=== PATIENT | female | born 1990 | race Caucasian/White ===

== ENCOUNTER 2018-12-18 05:48 | Emergency (ER) | payer MEDICAID ==
[2018-12-18 05:54] VITALS: O2SAT 100
[2018-12-18] MEDS ORDERED: Sodium Chloride 0.9% 1,000 ML IV STA (05:55)
--- NOTE | 2018-12-18 06:11 | ED PDOC ---
HPI: General Adult Time Seen by Provider: 12/18/18 05:54 Chief Complaint (Nursing): Abdominal Pain Chief Complaint (Provider): Abdominal Pain History Per: Patient History/Exam Limitations: no limitations Onset/Duration Of Symptoms: Days (x2) Current Symptoms Are (Timing): Still Present Additional Complaint(s): 28 year old female with no PMHx presents to the ED with abdominal pain, vomiting and diarrhea since Friday. Patient reports she developed abdominal pain associated nausea and x4 episodes of nonbloody nonbilious vomiting and x3 episodes of diarrhea. She states she has upper abdominal pain that radiates to back and is worse when she takes in deep breaths. Patient took Pepto-Bismol for symptoms but consequently vomited. Patient has chills but, denies fever, urinary symptoms, or other medical complaints. PMD: none provided Past Medical History Reviewed: Historical Data, Nursing Documentation, Vital Signs Vital Signs: Last Vital Signs Temp 98.4 F 12/18/18 05:53 Pulse 83 12/18/18 05:53 Resp 15 12/18/18 05:53 BP 102/61 12/18/18 05:53 Pulse Ox 100 12/18/18 05:53 - Medical History PMH: Hyperthyroidism - Surgical History Surgical History: Appendectomy, (x1) - Family History Family History: States: Unknown Family Hx - Social History Current smoker - smoking cessation education provided: No Ex-Smoker (has not smoked in the last 12 months): No Alcohol: None Drugs: Denies - Immunization History Hx Tetanus Toxoid Vaccination: No Hx Influenza Vaccination: No Hx Pneumococcal Vaccination: No - Home Medications Home Medications: Ambulatory Orders Medication Instructions Recorded Ciprofloxacin [Cipro] 1 tab PO BID #14 tab 04/30/17 Phenazopyridine HCl [Pyridium] 200 mg PO TID #10 tablet 04/30/17 - Allergies Allergies/Adverse Reactions: Allergies Allergy/AdvReac Type Severity Reaction Status Date / Time No Known Allergies Allergy Verified 12/18/18 05:54 Review of Systems ROS Statement: Except As Marked, All Systems Reviewed And Found Negative Constitutional: Positive for: Chills. Negative for: Fever Gastrointestinal: Positive for: Nausea, Vomiting, Abdominal Pain, Diarrhea Genitourinary Female: Negative for: Dysuria, Frequency, Incontinence, Hematuria Physical Exam - Physical Exam Appears: Positive for: Non-toxic, No Acute Distress Head Exam: Positive for: ATRAUMATIC, NORMOCEPHALIC Skin: Positive for: Normal Color, Warm, Dry Eye Exam: Positive for: EOMI, Normal appearance, PERRL Neck: Positive for: Normal, Painless ROM Cardiovascular/Chest: Positive for: Regular Rate, Rhythm Respiratory: Positive for: Normal Breath Sounds. Negative for: Respiratory Distress Gastrointestinal/Abdominal: Positive for: Tenderness (right upper quadrant), Other (Positive Kingston sign ) Extremity: Positive for: Normal ROM Neurologic/Psych: Positive for: Alert, Oriented (x3) - ECG O2 Sat by Pulse Oximetry: 100 (RA) Pulse Ox Interpretation: Normal Medical Decision Making Medical Decision Making: Time: 0555 Impression: 28 y/o with nausea, vomting, diarrhea and abdominal pain Plan: --Labs --US Time: 0700 --Patient signed out to Dr. Pittman by this provider, pending labs, US and reevaluation. Scribe Attestation: Documented by Fadumo Zamora, acting as a scribe for Huey Waddell MD. Provider Scribe Attestation: All medical record entries made by the Scribe were at my direction and personally dictated by me. I have reviewed the chart and agree that the record accurately reflects my personal performance of the history, physical exam, medical decision making, and the department course for this patient. I have also personally directed, reviewed, and agree with the discharge instructions and disposition. Disposition - Disposition
[2018-12-18 06:36] LABS: BASO % 0.1 % (0.0-2.0); EOS # 0.1 K/uL (0.0-0.7); HEMOGLOBIN 12.6 g/dL (12.0-16.0); LYMPH # 0.5 K/uL (1.0-4.3); LYMPH % 5.2 % (20.0-40.0); MEAN CELL VOLUME 90.3 fl (81.0-99.0); MEAN CORPUSCULAR HEMOGLOBIN 30.6 pg (27.0-31.0); MEAN CORPUSCULAR HGB CONC 33.9 g/dL (33.0-37.0); MEAN PLATELET VOLUME 7.3 fl (7.2-11.7); MONO # 0.6 K/uL (0.0-0.8); MONO % 6.4 % (0.0-10.0); NEUT # 7.6 K/uL (1.8-7.0); NEUT % 87.3 % (50.0-75.0); PLATELET COUNT 181 K/uL (130-400); RBC 4.13 Mil/uL (3.80-5.20); RED CELL DISTRIBUTION WIDTH 12.9 % (11.5-14.5); WHITE BLOOD COUNT 8.7 K/uL (4.8-10.8)
[2018-12-18 06:56] LABS: ALB/GLOB RATIO 1.4 (1.0-2.1); ALT/SGPT 61 U/L (9-52); AST/SGOT 155 U/L (14-36); BLOOD UREA NITROGEN 13 mg/dl (7-17); CALCIUM 8.2 mg/dL (8.4-10.2); GFR NON-AFRICAN AMERICAN > 60; LIPASE 154 U/L (23-300)
--- NOTE | 2018-12-18 07:03 | ED PDOC ---
- Laboratory Results Result Diagrams: 12/18/18 06:19 12/18/18 06:19 Lab Results: Total Bilirubin 0.3 mg/dl (0.2-1.3) 12/18/18 06:19 AST 155 U/L (14-36) H 12/18/18 06:19 ALT 61 U/L (9-52) H D 12/18/18 06:19 Alkaline Phosphatase 91 U/L (38-126) 12/18/18 06:19 Total Protein 6.9 G/DL (6.3-8.2) 12/18/18 06:19 Albumin 4.0 g/dL (3.5-5.0) 12/18/18 06:19 Globulin 2.9 gm/dL (2.2-3.9) 12/18/18 06:19 Albumin/Globulin Ratio 1.4 (1.0-2.1) 12/18/18 06:19 Lipase 154 U/L (23-300) 12/18/18 06:19 - ECG O2 Sat by Pulse Oximetry: 100 (RA) - Progress Condition: Re-examined Medical Decision Making Medical Decision Makin:00 Patient endorsed to provider by Dr. Waddell pending ultrasound. ----- Scribe Attestation: Documented by Emeka Case, acting as a scribe for Rosa Elena Pittman MD Provider Scribe Attestation: All medical record entries made by the Scribe were at my direction and personally dictated by me. I have reviewed the chart and agree that the record accurately reflects my personal performance of the history, physical exam, medical decision making, and the department course for this patient. I have also personally directed, reviewed, and agree with the discharge instructions and disposition. Disposition Doctor Will See Patient In The: Office Counseled Patient/Family Regarding: Diagnosis, Need For Followup - Clinical Impression Clinical Impression: Cholelithiasis, Gastroenteritis - POA Present On Arrival: None - Disposition Referrals: Haylee Vega MD [Family Provider] - Bradley Rodríguez MD, PhD [Staff Provider] - [facility] [Outside] Disposition: Routine/Home Disposition Time: 09:15 Condition: IMPROVED Instructions: Gallstones, Gastroenteritis (ED) Forms: [employer] (K[place]z), [facility] ED School/Work Excuse
[2018-12-18] MEDS: Potassium Chloride 20 mEq ER Tab PO ONE ×2 (07:10→08:53)
[2018-12-18 08:31] LABS: BANDS 3 % (0-2); EOSINOPHIL 1 % (0-7); LYMPHOCYTE 5 % (20-50); MONOCYTE 8 % (0-10); NEUTROPHIL 83 % (42-75); PLATELET ESTIMATE NORMAL (NORMAL); TOTAL CELLS COUNTED 100
[2018-12-18 08:32] LABS: ANISOCYTOSIS SLIGHT; LARGE PLATELETS PRESENT; OVALOCYTES MODERATE; TEARDROP CELLS SLIGHT
[2018-12-18 10:08] VITALS: BP 102/59; PULSE 75; RESP 19; TEMP 98.3
--- NOTE | 2018-12-18 10:29 | US ---
Date of service: 12/18/2018 HISTORY: Right upper quadrant pain. COMPARISON: None. TECHNIQUE: Sonographic evaluation of the right upper quadrant of the abdomen. FINDINGS: LIVER: Measures 15.8 cm in length. Normal echogenicity of the liver parenchyma. No mass. No intrahepatic bile duct dilatation. GALLBLADDER: Cholelithiasis. Slightly gallbladder wall is minimally thickened/edematous which may be due to incomplete distention however mild inflammation not excluded. No pericholecystic fluid collections or sonographic Martinez sign. COMMON BILE DUCT: Measures 3.7 mm. No stones. No dilatation. PANCREAS: Unremarkable as visualized. No mass. No ductal dilatation. RIGHT KIDNEY: Measures 11.6 x 6.6 x 4.1 cm in length. Normal echogenicity. No calculus, mass, or hydronephrosis. AORTA: No aneurysmal dilatation. IVC: Unremarkable. OTHER FINDINGS: None . IMPRESSION: Cholelithiasis with the very minimal gallbladder wall thickening possibly due to incomplete distention however mild inflammation not excluded.. No sonographic Martinez sign.
== END 2018-12-18 10:29 | disposition home or self-care (01) ==
LOC: H.ER 05:48
DX: K80.20 Calculus of gallbladder without cholecystitis without obstruction (principal); K52.9 Noninfective gastroenteritis and colitis, unspecified
CPT/HCPCS: 76705; 80053; 81025; 83690; 85025; 99284; J1885; J2405; J7030

== ENCOUNTER 2019-02-02 08:02 | Day surgery (SDC) | payer MEDICAID ==
[2019-01-28 11:36] VITALS: BMI 18.3
[2019-02-02 08:47] VITALS: RESP 18
[2019-02-02] MEDS ORDERED: Lactated Ringer's 1,000 ML IV ONE (09:30)
--- NOTE | 2019-02-02 09:34 | CP.SDSHP ---
Same Day Surgery H & P - History Proposed Procedure: Laparoscopic Cholecystectomy possible open Pre-Op Diagnosis: Symptomatic cholelithiasis - Previous Medical/Surgical History Pain: 0. No Pain Previous Surgical History: appendectomy, - Allergies Allergies: Allergies No Known Allergies Allergy (Verified 02/02/19 09:01) - Current Medications Current Medications: Denies - Physical Exam General Appearance: NAD, Well nourished, non-toxic Vital Signs: Vital Signs 02/02/19 02/02/19 02/02/19 08:43 08:52 08:54 Temperature 97.8 F Pulse Rate 75 75 75 Respiratory 18 Rate Blood Pressure 98/54 L O2 Sat by Pulse 100 Oximetry Mental Status: Alert & Oriented x3 Neuro: WNL Heart: WNL Lungs: WNL GI: WNL - {Optional Preform as Required} Abdomen: WNL - Impression Impression: 28 F who presents for laparoscopic cholecystectomy Pt. Evaluated Today:Candidate for Anesthesia & Procedure: Yes - Date & Time Date: 02/02/19 Time: 09:34 Short Stay Discharge - Short Stay Discharge Admitting Diagnosis/Reason for Visit: K80.20 Disposition: HOME/ ROUTINE Referrals: Joel Bautista MD [Staff Provider] - Follow-up: follow up with Dr. Bautista in 1 week Additional Instructions (Diet, Activity): No heavy lifting for 4 weeks May shower Keep area clean and dry No diet restrictions Follow up with Dr. Bautista in [address] Bautista's office for any issues Progress Note/Discharge Note with Instructions: 28F s/p laparoscopic cholecystectomy patient to be discharged home when criteria met
[2019-02-02 09:41] LABS: BASO % 0.5 % (0.0-2.0); EOS # 0.1 K/uL (0.0-0.7); EOS % 2.5 % (0.0-4.0); LYMPH # 1.7 K/uL (1.0-4.3); MEAN CELL VOLUME 89.5 fl (81.0-99.0); MEAN CORPUSCULAR HEMOGLOBIN 30.6 pg (27.0-31.0); MEAN CORPUSCULAR HGB CONC 34.2 g/dL (33.0-37.0); MEAN PLATELET VOLUME 7.3 fl (7.2-11.7); MONO # 0.4 K/uL (0.0-0.8); MONO % 6.7 % (0.0-10.0); NEUT # 3.4 K/uL (1.8-7.0); NEUT % 60.3 % (50.0-75.0); NRBC % 0.1 % (0.0-0.0); RBC 4.24 Mil/uL (3.80-5.20); RED CELL DISTRIBUTION WIDTH 13.2 % (11.5-14.5); WHITE BLOOD COUNT 5.7 K/uL (4.8-10.8)
[2019-02-02] MEDS ORDERED: Rocuronium 10 mg/ml (5 ml) ONE (11:23)
[2019-02-02] MEDS ORDERED: Succinylcholine 200 mg/10 ml Inj IV ONE (11:23)
[2019-02-02] MEDS ORDERED: Dexamethasone 4 mg/1 ml ONE (11:23)
[2019-02-02] MEDS ORDERED: Propofol 10 mg/ml Inj (20 ML) ONE (11:23)
[2019-02-02] MEDS ORDERED: Bupivacaine HCl 0.5% PF (30 ml) Inj ONE (11:36)
[2019-02-02] MEDS ORDERED: Oxycodone/Acetaminophen 5/325 mg Tab PO PRN ×2 (12:28→13:02)
[2019-02-02] MEDS ORDERED: Neostigmine 1:1000 (1 mg/ml) Inj ONE (12:38)
--- NOTE | 2019-02-02 13:02 | PCM.SURG1 ---
Surgeon's Initial Post Op Note - Surgeon's Notes Surgeon: Dr. Bautista Research Staff Member: Dr. Velasco Type of Anesthesia: General Endo Anesthesia Administered By: Dr. Parham Pre-Operative Diagnosis: Symptomatic Cholelithiasis Operative Findings: See operative dictation Post-Operative Diagnosis: Same Operation Performed: Laparoscopic Cholecystectomy Specimen/Specimens Removed: Gallbladder Estimated Blood Loss: EBL {In ML}: 10 Blood Products Given: N/A Drains Used: No Drains Post-Op Condition: Good Date of Surgery/Procedure: 02/02/19 Time of Surgery/Procedure: 13:02
[2019-02-02] MEDS: Lactated Ringer's 1,000 ML IV SCH ×2 (13:30→14:40)
[2019-02-02] MEDS: HYDROmorphone 0.5 mg/0.5 ml ISec IVP PRN ×2 (13:45→14:00)
[2019-02-02 17:59] VITALS: BP 97/56; PULSE 64; TEMP 98.2; O2SAT 98
--- NOTE | 2019-02-03 08:02 | OP ---
PROCEDURE DATE: 02/02/2019 PREOPERATIVE DIAGNOSIS: Symptomatic cholelithiasis. POSTOPERATIVE DIAGNOSIS: Symptomatic cholelithiasis. PROCEDURE: Laparoscopic cholecystectomy. SURGEON: Joel Bautista MD SEWING MACHINE OPERATOR PAPER BAGS: Iker Velasco DO ANESTHESIOLOGIST: Dr. Parham ANESTHETIC: General endotracheal anesthesia. SUMMARY OF EVENTS: No intraoperative complications. SPECIMEN SENT TO PATHOLOGY: Gallbladder. DRAINS: No drains were placed. DISPOSITION: The patient was discharged to the PACU. CLINICAL NOTE: The patient is a pleasant 28-year-old female who had presented earlier this year with biliary colic and symptomatic cholelithiasis. Risks, benefits, alternatives, rationale to surgery were explained to the patient, and she had decided to get her gallbladder removed by Dr. Bautista with laparoscopic possible open cholecystectomy. DESCRIPTION OF PROCEDURE: The patient was brought to the operating room after surgical consent was obtained by Dr. Bautista. Preoperatively, the patient was given 1 g of Ancef. General anesthesia was induced with SCDs in place. A time-out was done and the correct patient and procedure was agreed upon by the whole operative team. Using an 11-blade, an infraumbilical incision was made in the skin. A Veress needle was inserted into the incision into the peritoneal cavity. CO2 insufflation was then initiated . The abdomenwas insufflated until it reached a pressure of 15 mmHg. At that point, an 11 millimeter bladed trocar was inserted into the infraumbilical port. The camera was then inserted which confirmed intraperitoneal location. The abdomen was then inspected. No signs of any injury were noted upon entry. Next, the subxiphoid region was identified. Our correct ideal place for placement of the 11-mm subxiphoid trocar was identified. Skin was then incised using a #11 scalpel. Using a bladed trocar, the abdomen was then entered under direct visualization. No injuries were noted. Next, the right-sided registered nurse first assistant ports were then placed under direct visualization using #5 bladed trocar. No injuries were noted upon entry into the abdomen. No bleeding was noted at the port sites. An atraumatic grasper, was then inserted into the lateral most port. The gallbladder was then retracted cephalad and lateral. The patient was placed in a reverse Trendelenburg with the right side slightly elevated towards the left. Omental attachments were noted indicative of prior episodes of cholecystectomy. The adhesions were then dissected off using a [place] dissector. The infundibulum was identified. The maneuver exposed Calot's triangle. The peritoneum overlying the gallbladder infundibulum was then dissected. The triangle was dissected, which exposed the cystic duct and the cystic artery. A size-10 clip was used. Two clips were applied at the distal aspect of the cystic duct and one clip proximal. Then using the endoscopic scissors, the bile duct was then transected. Two 10-clips were then applied to the cystic artery distally and one proximally and then as well using the laparoscopic scissor then divided. Using electrocautery and the spatula, the gallbladder was then dissected off the liver bed. No significant bleeding was noted. During dissection of the liver bed, there was slight injury at the gallbladder in which there was some spillage of blood and bile that was suctioned. The gallbladder was removed off the gallbladder bed without any issues. The abdomen was then copiously irrigated and suctioned until the suction was clear. Using an EndoCatch bag, the specimen was then placed into the bag and then removed from the umbilical incision. The abdomen was then inspected one last time. No injuries were noted. Using a 0 Vicryl on a UR6, the infraumbilical fascia was then closed. The nurses reported all counts were correct. At which point, the following port sites were then closed as well using a 4-0 Monocryl suture. There were no intraoperative complications. Blood loss was approximately 20 mL mostly from the skin incisions. The patient was then transferred to the PACU in stable condition. Iker Velasco DO Joel Bautista MD ADOLFO
== END 2019-02-02 19:30 | disposition home or self-care (01) ==
LOC: H.OPSURG 08:02
PROVIDERS: ATTEND Specialist
DX: K80.10 Calculus of gallbladder with chronic cholecystitis without obstruction (principal)
CPT/HCPCS: 36415; 47562; 85025; 88304; J0330; J0690; J1100; J1170; J1885; J2001; J2405; J2704; J2710; J3010; J7120